=== PATIENT | male | born 1995 | race Caucasian/White ===

== ENCOUNTER 2018-11-11 19:41 | Emergency (ER) | payer OTHER ==
[~2018-11-11] VITALS: Ht 170.2 cm; Wt 63.5 kg
[2018-11-11 22:59] VITALS: BP 126/56
== END 2018-11-11 22:59 | disposition home or self-care (01) ==
LOC: M.ERS 19:41
DX: S01.311A Laceration without foreign body of right ear, initial encounter (principal); S06.0X0A Concussion without loss of consciousness, initial encounter; Y04.2XXA Assault by strike against or bumped into by another person, initial encounter; Y92.89 Other specified places as the place of occurrence of the external cause; Y93.89 Activity, other specified; Y99.8 Other external cause status